=== PATIENT | male | born 1985 | race Hispanic/Latino ===

== ENCOUNTER 2019-11-08 10:28 | Emergency (ER) | payer SELFPAY ==
--- NOTE | 2019-11-08 11:35 | ER ---
Nurse's Notes [facility] Name: Silvino Patel Age: 34 yrs Sex: Male : 1985 Arrival Date: 11/08/2019 Time: 10:29 Bed 8 Private MD: Diagnosis: Headache;Nausea and vomiting Presentation: 11/07 10:38 Chief complaint: Patient states: [place] yesterday/slight stiff neck. N/V x 4 this am. No ll1 fever or cough. Coronavirus screen: Client denies travel out of the [place] in the last 14 days. At this time, the client does not indicate any symptoms associated with coronavirus-19. Coronavirus screen: headache. Ebola Screen: Patient denies travel to an Ebola-affected area in the 21 days before illness onset. Initial Sepsis Screen: Does the patient meet any 2 criteria? No. Patient's initial sepsis screen is negative. Risk Assessment: Do you want to hurt yourself or someone else? Patient reports no desire to harm self or others. Onset of symptoms was November 07, 2019. 10:38 Method Of Arrival: Ambulatory ll1 10:38 Acuity: QUITA 4 ll1 10:38 Initial Sepsis Screen: Does the patient have a suspected source of infection? No. sv Patient's initial sepsis screen is negative. Historical: - Allergies: 10:41 Tramadol HCl; ll1 10:41 Dimetapp Cold-Allergy (PE); ll1 10:41 Toby; ll1 - PMHx: 10:41 abscess; ll1 - PSHx: 10:41 Cholecystectomy; R upper arm surgery; Appendectomy; ll1 - Immunization history:: Flu vaccine is not up to date. - Social history:: Smoking status: Patient reports the use of cigarette tobacco products, smokes one pack cigarettes per day. Screenin:32 Abuse screen: Denies threats or abuse. Denies injuries from another. Nutritional sv screening: No deficits noted. Tuberculosis screening: No symptoms or risk factors identified. Fall Risk None identified. Assessment: 11:44 General: Appears in no apparent distress. comfortable, well groomed, well developed, sv Behavior is calm, cooperative, appropriate for age. Pain: Denies pain. Neuro: Level of Consciousness is awake, alert, obeys commands, Oriented to person, place, time, situation, Moves all extremities. Full function. Respiratory: Respiratory effort is even, unlabored, Respiratory pattern is regular, symmetrical. Derm: Skin is pink, warm \T\ dry. Vital Signs: 10:38 BP 133 / 75; Pulse 80; Resp 18; Temp 98.2; Pulse Ox 98% ; Weight 136.08 kg; Height 5 ll1 ft. 9 in. (175.26 cm); Pain 0/10; 10:38 Body Mass Index 44.30 (136.08 kg, 175.26 cm) ll1 ED Course: 10:29 Patient arrived in ED. ds1 10:40 Triage completed. ll1 10:42 Arm band placed on Patient placed in an exam room, on a stretcher. ll1 10:59 Ganesh Rey NP is [facility]. pm1 10:59 Myles Recio MD is Attending Physician. pm1 11:32 Ivett Lai RN is Primary Nurse. sv 11:32 Nurse Practitioner and/or Physician Manager Of Internal to see patient. sv 11:32 Patient has correct armband on for positive identification. Bed in low position. Call sv light in reach. Door closed. Head of bed elevated. 11:43 No provider procedures requiring assistance completed. Patient did not have IV access sv during this emergency room visit. Administered Medications: No medications were administered Outcome: 11:35 Discharge ordered by MD. pm1 11:43 Discharged to home ambulatory. sv 11:43 Condition: stable 11:43 Discharge instructions given to patient, Instructed on discharge instructions, follow up and referral plans. medication usage, Demonstrated understanding of instructions, follow-up care, medications, Prescriptions given X 2. 11:44 Patient left the ED. sv Signatures: Ivett Lai, RN RN Afia Menendez ds1 Ganesh Rey NP INSURANCE SALES REPRESENTATIVE pm1 Alban Mckeon RN RN ll1
--- NOTE | 2019-11-08 11:36 | EDPHYS ---
Physician Documentation [facility] Name: Silvino Patel Age: 34 yrs Sex: Male : 1985 Arrival Date: 11/08/2019 Time: 10:29 Bed 8 Private MD: ED Physician Myles Recio HPI: 11/07 11:34 This 34 yrs old Male presents to ER via Ambulatory with complaints of Nausea, pm1 Vomiting, Headache. 11:34 The patient complains of pain to the forehead, right scientologist and left scientologist. The pm1 patient describes the headache as aching. Onset: The symptoms/episode began/occurred yesterday, resolved. Associated signs and symptoms: Pertinent positives: patient told me nausea and one episode of vomiting today. Patient's symptoms of headache, neck stiffness, nausea, and vomiting have completely resolved. Severity of symptoms: in the emergency department the pain has resolved, and did so earlier today. The symptoms are alleviated by nothing. the symptoms are aggravated by nothing. The patient has not recently seen a physician. Patient heard about the amoeba today and felt that he needed to be evaluated. Patient's headache, neck stiffness, nausea, and vomiting have resolved. Historical: - Allergies: 10:41 Tramadol HCl; ll1 10:41 Dimetapp Cold-Allergy (PE); ll1 10:41 [place]; ll1 - PMHx: 10:41 abscess; ll1 - PSHx: 10:41 Cholecystectomy; R upper arm surgery; Appendectomy; ll1 - Immunization history:: Flu vaccine is not up to date. - Social history:: Smoking status: Patient reports the use of cigarette tobacco products, smokes one pack cigarettes per day. ROS: 11:34 Constitutional: Negative for fever, chills, and weight loss, Neck: Negative for injury, pm1 pain, and swelling, Cardiovascular: Negative for chest pain, palpitations, and edema, Respiratory: Negative for shortness of breath, cough, wheezing, and pleuritic chest pain. 11:34 Back: Negative for injury and pain, : Negative for injury, bleeding, discharge, and swelling, MS/Extremity: Negative for injury and deformity, Skin: Negative for injury, rash, and discoloration. 11:34 Abdomen/GI: Positive for nausea and vomiting, Negative for abdominal pain, diarrhea, constipation. 11:34 Neuro: Positive for headache. Exam: 11:34 Constitutional: This is a well developed, well nourished patient who is awake, alert, pm1 and in no acute distress. Head/Face: Normocephalic, atraumatic. Neck: Trachea midline, no thyromegaly or masses palpated, and no cervical lymphadenopathy. Supple, full range of motion without nuchal rigidity, or vertebral point tenderness. No Meningismus. Chest/axilla: Normal chest wall appearance and motion. Nontender with no deformity. No lesions are appreciated. Cardiovascular: Regular rate and rhythm with a normal S1 and S2. No gallops, murmurs, or rubs. Normal PMI, no JVD. No pulse deficits. Respiratory: Lungs have equal breath sounds bilaterally, clear to auscultation and percussion. No rales, rhonchi or wheezes noted. No increased work of breathing, no retractions or nasal flaring. Abdomen/GI: Soft, non-tender, with normal bowel sounds. No distension or tympany. No guarding or rebound. No evidence of tenderness throughout. Back: No spinal tenderness. No costovertebral tenderness. Full range of motion. Skin: Warm, dry with normal turgor. Normal color with no rashes, no lesions, and no evidence of cellulitis. MS/ Extremity: Pulses equal, no cyanosis. Neurovascular intact. Full, normal range of motion. Neuro: Awake and alert, GCS 15, oriented to person, place, time, and situation. Cranial nerves II-XII grossly intact. Motor strength 5/5 in all extremities. Sensory grossly intact. Cerebellar exam normal. Normal gait. Vital Signs: 10:38 BP 133 / 75; Pulse 80; Resp 18; Temp 98.2; Pulse Ox 98% ; Weight 136.08 kg; Height 5 ll1 ft. 9 in. (175.26 cm); Pain 0/10; 10:38 Body Mass Index 44.30 (136.08 kg, 175.26 cm) ll1 MDM: 11:34 Patient medically screened. pm1 11:34 Data reviewed: vital signs. Data interpreted: Pulse oximetry: on room air is 98 %. pm1 Interpretation: normal. Counseling: I had a detailed discussion with the patient and/or guardian regarding: the historical points, exam findings, and any diagnostic results supporting the discharge/admit diagnosis, the need for outpatient follow up, a family practitioner, to return to the emergency department if symptoms worsen or persist or if there are any questions or concerns that arise at home. 11:34 ED course: Patient without any symptoms with arrival to the ER. All have resolved and pm1 discussed with the patient that no tests are needed at the moment. He agreed and was happy to go home with reassurances. Administered Medications: No medications were administered Disposition: 11/08 08:41 Co-signature as Attending Physician, Myles Recio MD I agree with the assessment and kdr plan of care. Disposition: 11/08/19 11:35 Discharged to Home. Impression: Headache, Nausea and vomiting. - Condition is Stable. - Discharge Instructions: General Headache Without Cause, Nausea and Vomiting, Adult. - Prescriptions for Zofran ODT 4 mg Oral tablet,disintegrating - place 1 tablet by TRANSLINGUAL route every 8 hours As needed; 20 tablet. Fiorinal 50- 325-40 mg Oral Capsule - take 1 capsule by ORAL route every 4 hours As needed - not to exceed 6 capsules per day; 20 capsule. - Medication Reconciliation Form, Thank You Letter, Antibiotic Education, Prescription Opioid Use form. - Follow up: Emergency Department; When: As needed; Reason: Worsening of condition. Follow up: Private Physician; When: 2 - 3 days; Reason: Recheck today's complaints, Continuance of care, Re-evaluation by your physician. - Problem is new. - Symptoms are resolved. Signatures: Ivett Lai RN RN sv Myles Recio MD MD [facility] Ganesh Rey NP EXAMINATION PROCTOR pm1 Alban Mckeon RN RN ll1 Corrections: (The following items were deleted from the chart) 11/07 11:44 11:35 11/08/2019 11:35 Discharged to Home. Impression: Headache; Nausea and vomiting. sv Condition is Stable. Forms are Medication Reconciliation Form, Thank You Letter, Antibiotic Education, Prescription Opioid Use. Follow up: Emergency Department; When: As needed; Reason: Worsening of condition. Follow up: Private Physician; When: 2 - 3 days; Reason: Recheck today's complaints, Continuance of care, Re-evaluation by your physician. Problem is new. Symptoms are resolved. pm1
[2019-11-08 12:01] VITALS: BP 133/75; TEMP 98.2; O2SAT 98
== END 2019-11-08 11:44 | disposition home or self-care (01) ==
LOC: ER 10:28
DX: R51 Headache (principal); R11.2 Nausea with vomiting, unspecified; F17.210 Nicotine dependence, cigarettes, uncomplicated; Z88.5 Allergy status to narcotic agent; Z88.8 Allergy status to other drugs, medicaments and biological substances; Z91.018 Allergy to other foods
CPT/HCPCS: 99282

== ENCOUNTER 2021-07-20 20:30 | Emergency (ER) | payer SELFPAY ==
[2021-07-20] MEDS ORDERED: PROMETH/COD 6.25/10MG SYRUP 5ML ONE (21:34)
[2021-07-20] MEDS ORDERED: ACETAMINOPHEN 325 MG TABLET ONE (21:35)
--- NOTE | 2021-07-20 22:10 | RAD REPORT ---
EXAM DESCRIPTION: Pretty Major (2 Views)07/20/2021 10:02 pm CLINICAL HISTORY: Cough COMPARISON: 2013 FINDINGS: The lungs appear clear of acute infiltrate. The heart is normal size IMPRESSION: No acute abnormalities displayed
--- NOTE | 2021-07-20 23:31 | ER ---
Nurse's Notes [facility] Name: Silvino Patel Age: 35 yrs Sex: Male : 1985 Arrival Date: 07/20/2021 Time: 20:34 Bed 28 Private MD: Diagnosis: Influenza due to identified novel influenza A virus with other respiratory manifestations Presentation: 07/20 20:30 Method Of Arrival: EMS: [facility] lp1 20:57 Chief complaint: Patient states: ":I had been having body aches, coughing, felt vc1 lightheaded. Then I took my temperature 101.9. In the ambulance my temperature was 102.7". Coronavirus screen: Vaccine status: Patient reports being unvaccinated. chills, congestion, cough unrelated to allergies, fatigue, fever, vomiting. Client presents with at least one sign or symptom that may indicate coronavirus-19. Standard/surgical mask placed on the client. Provider contacted for isolation considerations. Client reports previous positive COVID test result. Beginning of 2021. Ebola Screen: No symptoms or risks identified at this time. Initial Sepsis Screen: Does the patient meet any 2 criteria? HR > 90 bpm. No. Patient's initial sepsis screen is negative. Does the patient have a suspected source of infection? Yes: Productive cough/pneumonia. Risk Assessment: Do you want to hurt yourself or someone else? Patient reports no desire to harm self or others. Onset of symptoms was July 20, 2021. 20:57 Acuity: QUITA 3 vc1 21:05 Care prior to arrival: Medication(s) given: Motrin, 500 mg. vc1 Triage Assessment: 21:01 General: Appears in no apparent distress. uncomfortable, ill, Behavior is calm, vc1 cooperative, appropriate for age. Pain: Complains of pain in body aches, headache Pain does not radiate. Pain currently is 7 out of 10 on a pain scale. Neuro: No deficits noted. Cardiovascular: No deficits noted. Respiratory: Reports cough that is non-productive, Onset: The symptoms/episode began/occurred suddenly, the patient has mild shortness of breath. GI: Reports vomiting. Historical: - Allergies: 21:01 Dimetapp Cold-Allergy (PE); vc1 21:01 [place]; vc1 21:01 Tramadol HCl; vc1 - Home Meds: 21:01 None [Active]; vc1 - PSHx: 21:01 Right humerus reconstructive sx; Appendectomy; Cholecystectomy; vc1 - Immunization history:: Adult Immunizations up to date, Client reports having NOT received the Covid vaccine. Flu vaccine is not up to date. Patient has never been vaccinated. - Social history:: Smoking status: Patient reports the use of cigarette tobacco products, smokes one pack cigarettes per day. Screenin:04 Abuse screen: Denies threats or abuse. Nutritional screening: No deficits noted. vc1 Tuberculosis screening: No symptoms or risk factors identified. Fall Risk None identified. Assessment: 21:04 Respiratory: Airway is patent Respiratory effort is even, unlabored. vc1 21:14 General: Appears in no apparent distress. comfortable, Behavior is calm, cooperative, ld1 appropriate for age. Pain: Denies pain. Neuro: Level of Consciousness is awake, alert, obeys commands, Oriented to person, place, time, situation. Cardiovascular: Capillary refill < 3 seconds Patient's skin is warm and dry. Rhythm is sinus rhythm. Respiratory: Airway is patent Respiratory effort is even, unlabored, Breath sounds are clear bilaterally. GI: Abdomen is flat, non-distended. : No signs and/or symptoms were reported regarding the genitourinary system. EENT: No signs and/or symptoms were reported regarding the EENT system. Derm: No signs and/or symptoms reported regarding the dermatologic system. Musculoskeletal: No signs and/or symptoms reported regarding the musculoskeletal system. 21:36 Reassessment: Patient appears in no apparent distress at this time. Patient and/or ld1 family updated on plan of care and expected duration. Pain level reassessed. Patient is alert, oriented x 3, equal unlabored respirations, skin warm/dry/pink. 22:52 Reassessment: Patient appears in no apparent distress at this time. Patient and/or ld1 family updated on plan of care and expected duration. Pain level reassessed. Patient is alert, oriented x 3, equal unlabored respirations, skin warm/dry/pink. Vital Signs: 20:57 BP 125 / 65; Pulse 102; Resp 18; Temp 100.5(O); Pulse Ox 96% ; Weight 124.74 kg; Height vc1 5 ft. 9 in. (175.26 cm); Pain 7/10; 21:36 BP 128 / 66; Pulse 94; Resp 18; Pulse Ox 97% on R/A; ld1 22:52 BP 104 / 45; Pulse 81; Resp 18; Pulse Ox 94% on R/A; ld1 23:55 BP 118 / 83; Pulse 86; Resp 18; Pulse Ox 96% on R/A; ld1 20:57 Body Mass Index 40.61 (124.74 kg, 175.26 cm) vc1 ED Course: 20:34 Patient arrived in ED. mw2 20:38 Prudencio Herrera PA is PHCP. cp 20:38 Remy Taylor MD is Attending Physician. cp 20:40 Patient's name was called from ER lobby. No response. lp1 21:01 Triage completed. vc1 21:05 Arm band placed on left wrist. vc1 21:08 Atiya Perkins, RN is Primary Nurse. ld1 21:14 Patient has correct armband on for positive identification. Placed in gown. Bed in low ld1 position. Call light in reach. Side rails up X2. environmental monitoring specialist on. Pulse ox on. NIBP on. Door closed. Noise minimized. Warm blanket given. 21:14 No provider procedures requiring assistance completed. Patient did not have IV access ld1 during this emergency room visit. 21:36 Strep Sent. ld1 21:36 Influenza Screen (a \\T\\ B) Sent. ld1 21:36 Group A Streptococcus Rapid Sc Sent. ld1 21:36 COVID-19 SARS RT PCR (Document "Date of Onset" if Symptomatic) Sent. ld1 21:42 Group A Streptococcus Rapid Sc Sent. ld1 21:42 Influenza Screen (a \\T\\ B) Sent. ld1 21:42 Strep Sent. ld1 22:03 XRAY Chest Pa And Lat (2 Views) In Process Unspecified. EDMS Administered Medications: 21:36 Drug: Phenergan (promethazine) -Codeine Liquid (6.25mg - 10mg / 5mL) 10 ml Route: PO; ld1 21:36 Drug: Tylenol 650 mg Route: PO; ld1 Medication: 21:14 VIS not applicable for this client. ld1 Outcome: 23:31 Discharge ordered by . cp 23:55 Discharged to home ambulatory. ld1 23:55 Condition: stable 23:55 Discharge instructions given to patient, Instructed on discharge instructions, follow up and referral plans. medication usage, Demonstrated understanding of instructions, follow-up care, medications, Prescriptions given X 4. 23:56 Patient left the ED. ld1 Signatures: Dispatcher [employer] EDMS Prisca Abdul, RN RN lp1 Prudencio Herrera PA PA cp [place], MyKena mw2 Atiya Perkins RN RN ld1 Marguerite Saba RN RN vc1
--- NOTE | 2021-07-20 23:31 | EDPHYS ---
Physician Documentation [facility] Name: Silvino Patel Age: 35 yrs Sex: Male : 1985 Arrival Date: 07/20/2021 Time: 20:34 Bed 28 Private MD: ED Physician Remy Taylor HPI: 07/20 21:45 This 35 yrs old Male presents to ER via EMS with complaints of Shortness Of cp Breath, Chest Congestion, Chest Pressure, Cough, Fever, Pain All Over. 21:45 The patient or guardian reports cough, that is intermittent. cp 21:45 Onset: The symptoms/episode began/occurred this morning. Associated signs and symptoms: cp Pertinent positives: chest pain, with cough, fever, sore throat, body aches, Pertinent negatives: diarrhea, vomiting. Severity of symptoms: in the emergency department the symptoms are unchanged despite home interventions. Historical: - Allergies: 21:01 Dimetapp Cold-Allergy (PE); vc1 21:01 [place]; vc1 21:01 Tramadol HCl; vc1 - Home Meds: 21:01 None [Active]; vc1 - PSHx: 21:01 Right humerus reconstructive sx; Appendectomy; Cholecystectomy; vc1 - Immunization history:: Adult Immunizations up to date, Client reports having NOT received the Covid vaccine. Flu vaccine is not up to date. Patient has never been vaccinated. - Social history:: Smoking status: Patient reports the use of cigarette tobacco products, smokes one pack cigarettes per day. ROS: 21:50 Constitutional: Positive for body aches, fever, Negative for poor PO intake. cp 21:50 Eyes: Negative for injury, pain, redness, and discharge. cp 21:50 ENT: Positive for sore throat, Negative for drainage from ear(s), ear pain, difficulty swallowing, difficulty handling secretions. 21:50 Cardiovascular: Positive for chest pain, with cough, Negative for edema, palpitations. 21:50 Respiratory: Positive for cough, "sounds productive", shortness of breath. 21:50 Abdomen/GI: Negative for abdominal pain, vomiting, diarrhea, constipation. 21:50 Neuro: Positive for headache, Negative for altered mental status, weakness. 21:50 All other systems are negative. Exam: 13:47 ECG was reviewed by the Attending Physician. cp 21:55 Constitutional: The patient appears in no acute distress, alert, awake, cp non-diaphoretic, non-toxic, well developed, well nourished, obese. 21:55 Head/Face: Normocephalic, atraumatic. cp 21:55 Eyes: Periorbital structures: appear normal, Conjunctiva: normal, no exudate, no injection, Sclera: no appreciated abnormality, Lids and lashes: appear normal, bilaterally. 21:55 ENT: External ear(s): are unremarkable, Ear canal(s): are normal, clear, TM's: dullness, bilaterally, Nose: is normal, Mouth: Lips: moist, Oral mucosa: moist, Posterior pharynx: Airway: no evidence of obstruction, patent, Tonsils: with erythema, no exudate, erythema, that is mild, exudate, is not appreciated. 21:55 Neck: ROM/movement: is normal, is supple, no meningismus, no nuchal rigidity. 21:55 Chest/axilla: Inspection: normal. 21:55 Cardiovascular: Rate: tachycardic, Rhythm: regular, Edema: is not appreciated, JVD: is not appreciated. 21:55 Respiratory: the patient does not display signs of respiratory distress, Respirations: normal, no use of accessory muscles, no retractions, labored breathing, is not present, Breath sounds: stridor, is not appreciated, + upper airway congestion. wheezing: is not appreciated. 21:55 Abdomen/GI: Inspection: obese Palpation: abdomen is soft and non-tender, in all quadrants. 21:55 Skin: no rash present. 21:55 Neuro: Orientation: to person, place \\T\\ time. Mentation: is normal. Vital Signs: 20:57 BP 125 / 65; Pulse 102; Resp 18; Temp 100.5(O); Pulse Ox 96% ; Weight 124.74 kg; Height vc1 5 ft. 9 in. (175.26 cm); Pain 7/10; 21:36 BP 128 / 66; Pulse 94; Resp 18; Pulse Ox 97% on R/A; ld1 22:52 BP 104 / 45; Pulse 81; Resp 18; Pulse Ox 94% on R/A; ld1 23:55 BP 118 / 83; Pulse 86; Resp 18; Pulse Ox 96% on R/A; ld1 20:57 Body Mass Index 40.61 (124.74 kg, 175.26 cm) vc1 MDM: 21:07 Patient medically screened. 23:30 Data reviewed: vital signs, nurses notes, lab test result(s), radiologic studies, plain cp films. 23:30 Differential diagnosis: bronchitis, flu, URI, pneumonia. Test interpretation: by ED cp physician or midlevel provider: plain radiologic studies. Counseling: I had a detailed discussion with the patient and/or guardian regarding: the historical points, exam findings, and any diagnostic results supporting the discharge/admit diagnosis, lab results, radiology results, to return to the emergency department if symptoms worsen or persist or if there are any questions or concerns that arise at home. Response to treatment: the patient's symptoms have mildly improved after treatment, and as a result, I will discharge patient. ED course: VSS. Patient appears non-toxic and no signs of respiratory distress. Will discharge to home for continued monitoring. 07/20 21:26 Order name: Strep; Complete Time: 23:29 07/20 21:26 Order name: Influenza Screen (a \\T\\ B); Complete Time: 22:30 07/20 22:30 Interpretation: FLUA FLU A ----- POSITIVE for FLU A protein antigen; Reviewed. 07/20 21:28 Order name: Group A Streptococcus Rapid Sc [facility] 07/20 21:29 Order name: COVID-19 SARS RT PCR (Document "Date of Onset" if Symptomatic) [facility] 07/20 23:48 Order name: Throat Culture [facility] 07/20 21:26 Order name: XRAY Chest Pa And Lat (2 Views); Complete Time: 22:30 EC:47 Rate is 75 beats/min. Rhythm is regular. IN interval is prolonged at 228 msec. QRS cp interval is normal. QT interval is prolonged. Interpreted by me. Reviewed by me. Administered Medications: 21:36 Drug: Phenergan (promethazine) -Codeine Liquid (6.25mg - 10mg / 5mL) 10 ml Route: PO; ld1 21:36 Drug: Tylenol 650 mg Route: PO; ld1 Disposition: 07/21 04:10 Co-signature as Attending Physician, Remy Taylor MD. rn 04:11 Co-signature as Attending Physician, Remy Taylor MD. rn Disposition Summary: 07/20/21 23:31 Discharge Ordered Location: Home cp Problem: new cp Symptoms: have improved cp Condition: Stable cp Diagnosis - Influenza due to identified novel influenza A virus with other respiratory cp manifestations Followup: cp - With: Private Physician - When: 2 - 3 days - Reason: Worsening of condition Discharge Instructions: - Discharge Summary Sheet cp - Influenza, Adult cp - Pharyngitis cp Forms: - Medication Reconciliation Form cp - Thank You Letter cp - Antibiotic Education cp - Prescription Opioid Use cp Prescriptions: - Amoxicillin 875 mg Oral Tablet - take 1 tablet by ORAL route every 12 hours for 10 days; 20 tablet; Refills: 0, cp Product Selection Permitted - Bromfed DM 2-30-10 mg/5 mL Oral syrup - take 10 milliliter by ORAL route every 6 hours; 200 milliliter; Refills: 0, cp Product Selection Permitted - Ibuprofen 800 mg Oral Tablet - take 1 tablet by ORAL route every 8 hours As needed take with food; 30 tablet; cp Refills: 0, Product Selection Permitted - Tamiflu 75 mg Oral Capsule - take 1 capsule by ORAL route every 12 hours for 5 days; 10 capsule; Refills: 0, cp Product Selection Permitted Signatures: Dispatcher [employer] EDMS Remy Taylor MD MD rn Page, Corey, PA PA cp Atiya Perkins, RN RN ld1 Marguerite Saba RN RN vc1
[2021-07-21 00:21] VITALS: TEMP 100.5
[2021-07-21 00:24] VITALS: BP 118/83; O2SAT 96
== END 2021-07-20 23:56 | disposition home or self-care (01) ==
LOC: ER 20:30
DX: J10.1 Influenza due to other identified influenza virus with other respiratory manifestations (principal); F17.210 Nicotine dependence, cigarettes, uncomplicated; Z20.822 Contact with and (suspected) exposure to COVID-19; Z88.5 Allergy status to narcotic agent; Z88.8 Allergy status to other drugs, medicaments and biological substances; Z91.018 Allergy to other foods
CPT/HCPCS: 71046; 87070; 87081; 87804; 99284; U0003

== ENCOUNTER 2022-04-28 13:14 | Emergency (ER) | payer SELFPAY ==
--- NOTE | 2022-04-28 14:38 | RAD REPORT ---
EXAM DESCRIPTION: RAD - C Spine Ap/Lat - 04/28/2022 2:28 pm CLINICAL HISTORY: PAIN COMPARISON: No comparisons FINDINGS: Cervical bodies are normal in height and alignment.No fracture or acute bony process seen. No disc space narrowing. No prevertebral soft tissue thickening or other suspicious soft tissue finding. IMPRESSION: Negative cervical spine examination.
--- NOTE | 2022-04-28 14:44 | EDPHYS ---
Physician Documentation [facility] Name: Silvino Patel Age: 36 yrs Sex: Male : 1985 Arrival Date: 04/28/2022 Time: 13:22 Bed IW2 Private MD: ED Physician Jb Lai Historical: - Allergies: 04/28 13:32 Dimetapp Cold-Allergy (PE); hb 13:32 Toby; hb 13:32 Tramadol HCl; hb - PMHx: 13:32 abscess; hb - PSHx: 13:32 Appendectomy; Cholecystectomy; Right humerus reconstructive sx; hb Vital Signs: 13:29 BP 138 / 92; Pulse 81; Resp 16; Temp 97.5; Pulse Ox 100% on R/A; Weight 113.4 kg; hb Height 5 ft. 9 in. ; 13:29 Body Mass Index 36.92 (113.40 kg, 175.26 cm) hb MDM: 13:34 Patient medically screened. [facility] 04/28 13:40 Order name: XRAY C Spine Ap/lat; Complete Time: 14:41 [facility] Administered Medications: No medications were administered Disposition: 14:26 Co-signature as Attending Physician, Jb Lai MD I reviewed the patient's care rt provided by the Advanced Practice Provider and agree with the diagnosis and treatment plan. Disposition Summary: 04/28/22 14:44 Discharge Ordered Location: Home [facility] Problem: new [facility] Symptoms: are unchanged [facility] Condition: Stable [facility] Diagnosis - Torticollis [facility] Followup: [facility] - With: Private Physician - When: 2 - 3 days - Reason: Recheck today's complaints Discharge Instructions: - Discharge Summary Sheet Forms: - Work release form hb - Medication Reconciliation Form [facility] - Thank You Letter 7 - Antibiotic Education [facility] - Prescription Opioid Use [facility] Signatures: Dispatcher [employer] Pretty Ayala, RN RN Chrissy Linares FNP [place] CLERK [facility] Jb Lai MD MD rt
--- NOTE | 2022-04-28 14:44 | ER ---
Nurse's Notes [facility] Name: Silvino Patel Age: 36 yrs Sex: Male : 1985 Arrival Date: 04/28/2022 Time: 13:22 Bed IW2 Private MD: Diagnosis: Torticollis Presentation: 04/28 13:29 Method Of Arrival: Ambulatory hb 13:29 Acuity: QUITA 3 hb 13:29 Chief complaint: Neck pain x 3 days. Denies injury/headache/fever/dizziness. hb Coronavirus screen: At this time, the client does not indicate any symptoms associated with coronavirus-19. Ebola Screen: No symptoms or risks identified at this time. Initial Sepsis Screen: Does the patient meet any 2 criteria? No. Patient's initial sepsis screen is negative. Does the patient have a suspected source of infection? No. Patient's initial sepsis screen is negative. Risk Assessment: Do you want to hurt yourself or someone else? Patient reports no desire to harm self or others. Onset of symptoms was April 26, 2022. Historical: - Allergies: 13:32 Dimetapp Cold-Allergy (PE); hb 13:32 [place]; hb 13:32 Tramadol HCl; hb - PMHx: 13:32 abscess; hb - PSHx: 13:32 Appendectomy; Cholecystectomy; Right humerus reconstructive sx; hb Vital Signs: 13:29 BP 138 / 92; Pulse 81; Resp 16; Temp 97.5; Pulse Ox 100% on R/A; Weight 113.4 kg; hb Height 5 ft. 9 in. ; 13:29 Body Mass Index 36.92 (113.40 kg, 175.26 cm) hb ED Course: 13:22 Patient arrived in ED. mr 13:32 Triage completed. hb 13:32 Arm band placed on. 13:34 Chrissy Ceja FNP [facility] 13:34 Jb Lai MD is Attending Physician. [facility] 14:30 XRAY C Spine Ap/lat In Process Unspecified. EDMS Administered Medications: No medications were administered Outcome: 14:44 Discharge ordered by MD. monique Signatures: [facility] Galina Delarosa mr Pretty Monsivais, RN RN Chrissy Ceja FNP FNP Guillaume Corrections: (The following items were deleted from the chart) 13:33 13:29 Chief complaint: Neck pain x 3 days. Denies injury hb hb
[2022-04-28] MEDS ORDERED: CYCLOBENZAPRINE 10 MG TAB ONE (15:10)
[2022-04-28] MEDS ORDERED: KETOROLAC 30 MG/ML INJ ONE (15:11)
[2022-04-28 17:34] VITALS: BP 138/92; TEMP 97.5; O2SAT 100
== END 2022-04-28 15:15 | disposition home or self-care (01) ==
LOC: ER 13:14
DX: M43.6 Torticollis (principal)
CPT/HCPCS: 72040; 96372; 99283